=== PATIENT | female | born 1960 | race Caucasian/White ===

== ENCOUNTER 2021-04-21 09:37 | Emergency (ER) | payer OTHER ==
[2021-04-21] MEDS ORDERED: Sodium Chloride 0.9% 10 ML Syringe FLUSH PRN ×2 (10:08→10:36)
[2021-04-21] MEDS ORDERED: fentaNYL 100 MCG/2 ML SDV IVPUSH ONE (10:10)
[2021-04-21] MEDS ORDERED: Ondansetron 4 MG/2 ML SDV IVPUSH ONE (10:10)
--- NOTE | 2021-04-21 10:11 | EDM.PDOC ---
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 Abdomen Pain Score (Numeric/FACES): 8 - Related Data Allergies Allergy/AdvReac Type Severity Reaction Status Date / Time amoxicillin Allergy Rash Verified 08/17/15 12:48 Home Meds: Home Meds Multivitamin [Multi-Vitamin Daily] 1 tab PO DAILY 08/17/15 [History] PARoxetine HCl [Paxil] 40 mg PO PCDINNER 08/17/15 [History] Docusate Sodium [Colace] 100 mg PO BID PRN 04/21/21 [History] SUMAtriptan [Imitrex] 50 mg PO ASDIRECTED PRN 04/21/21 [History] Past Medical History [employer] History: Reports: Musculoskeletal History: Reports: Arthritis, Fracture Psychiatric History: Reports: Anxiety, Dementia Hematologic History: Reports: Blood Transfusion(s) - Past Surgical History HEENT Surgical History: Reports: Tonsillectomy GI Surgical History: Reports: Appendectomy, Small Bowel Female Surgical History: Reports: Section Musculoskeletal Surgical History: Reports: ORIF Social & Family History - Tobacco Use Tobacco Use Status *Q: Current Every Day Tobacco User Years of Tobacco use: 50 Packs/Tins Daily: 1 - Caffeine Use Caffeine Use: Reports: Coffee - Recreational Drug Use Recreational Drug Use: Yes Recreational Drug Type: Reports: Marijuana/Hashish Recreational Drug Use Frequency: Socially - Living Situation & Occupation Living situation: Reports: Alone ED ROS GENERAL - Review of Systems Review Of Systems: See Below Constitutional: Reports: Chills HEENT: Reports: No Symptoms Respiratory: Reports: No Symptoms Cardiovascular: Reports: No Symptoms GI/Abdominal: Reports: Abdominal Pain, Flatus, Nausea. Denies: Constipation, Diarrhea, Vomiting : Reports: No Symptoms ED EXAM, GI/ABD - Physical Exam Exam: See Below Exam Limited By: No Limitations General Appearance: Alert, Mild Distress Respiratory/Chest: No Respiratory Distress, Lungs Clear, Normal Breath Sounds, No Accessory Muscle Use, Chest Non-Tender Cardiovascular: Regular Rate, Rhythm, No Murmur GI/Abdominal Exam: Normal Bowel Sounds, Soft, No Organomegaly, No Distention, No Abnormal Bruit, Tender (Generalized) Course - Vital Signs Last Recorded V/S: Last Vital Signs Temp 97.6 F 04/21/21 09:58 Pulse 71 04/21/21 11:06 Resp 14 04/21/21 11:06 BP 122/59 L 04/21/21 11:06 Pulse Ox 97 04/21/21 11:06 - Orders/Labs/Meds Orders: Active Orders 24 hr Category Date Time Status Peripheral IV Care [RC] . DIRECTED Care 04/21/21 10:09 Active UA W/MICROSCOPIC [URIN] Urgent Lab 04/21/21 10:08 Ordered Lactated Ringers [Ringers, Lactated] 1,000 ml Med 04/21/21 10:15 Active IV ASDIRECTED Sodium Chloride 0.9% [Saline Flush] Med 04/21/21 10:08 Active 10 ml FLUSH ASDIRECTED PRN Sodium Chloride 0.9% [Saline Flush] Med 04/21/21 10:36 Active 10 ml FLUSH ONETIME PRN Peripheral IV Insertion Adult [OM.PC] Urgent Oth 04/21/21 10:08 Ordered Medication Orders Lactated Ringer's (Ringers, Lactated) 1,000 mls @ 999 mls/hr IV ASDIRECTED YASIR Last Admin: 04/21/21 10:30 Dose: 999 mls/hr Documented by: WALLYKCAL Sodium Chloride (Sodium Chloride 0.9% 10 Ml Syringe) 10 ml FLUSH ASDIRECTED PRN PRN Reason: Keep Vein Open Last Admin: 04/21/21 10:30 Dose: 10 ml Documented by: WALLYKCAL Sodium Chloride (Sodium Chloride 0.9% 10 Ml Syringe) 10 ml FLUSH ONETIME PRN PRN Reason: PER RADIOLOGY PROTOCOL Last Admin: 04/21/21 10:54 Dose: 10 ml Documented by: CORIE Labs: Laboratory Tests 04/21/21 04/21/21 04/21/21 Range/Units 10:21 10:21 10:21 WBC 10.9 (4.5-11.0) K/uL RBC 4.43 (3.30-5.50) M/uL Hgb 13.3 D (12.0-15.0) g/dL Hct 39.7 (36.0-48.0) % MCV 90 (80-98) fL MCH 30 (27-31) pg MCHC 34 (32-36) % Plt Count 281 (150-400) K/uL Neut % (Auto) 84.9 H (36-66) % Lymph % (Auto) 9.0 L (24-44) % Granite % (Auto) 5.3 (2-6) % Eos % (Auto) 0.5 L (2-4) % Baso % (Auto) 0.3 (0-1) % Sodium 143 (140-148) mmol/L Potassium 4.0 (3.6-5.2) mmol/L Chloride 103 (100-108) mmol/L Carbon Dioxide 24 (21-32) mmol/L Anion Gap 15.9 H (5.0-14.0) mmol/L BUN 10 (7-18) mg/dL Creatinine 0.7 (0.6-1.0) mg/dL Est Cr Clr Drug Dosing 51.16 mL/min Estimated GFR (MDRD) > 60 (>60) Glucose 125 H (74-106) mg/dL Lactic Acid 1.8 (0.4-2.0) mmol/L Calcium 9.5 (8.5-10.1) mg/dL Total Bilirubin 0.4 (0.2-1.0) mg/dL AST 29 (15-37) U/L ALT 22 (12-78) U/L Alkaline Phosphatase 59 (46-116) U/L Total Protein 7.5 (6.4-8.2) g/dL Albumin 4.2 (3.4-5.0) g/dL Globulin 3.3 (2.3-3.5) g/dL Albumin/Globulin Ratio 1.3 (1.2-2.2) Lipase 135 (73-393) U/L Meds: Medications Generic Name Dose Route Start Last Admin Trade Name Freq PRN Reason Stop Dose Admin Lactated Ringer's 1,000 mls @ 999 mls/hr 04/21/21 10:15 04/21/21 10:30 Ringers, Lactated IV 999 mls/hr ASDIRECTED YASIR Administration Sodium Chloride 10 ml 04/21/21 10:08 04/21/21 10:30 Sodium Chloride 0.9% 10 Ml Syringe FLUSH 10 ml ASDIRECTED PRN Administration Keep Vein Open Sodium Chloride 10 ml 04/21/21 10:36 04/21/21 10:54 Sodium Chloride 0.9% 10 Ml Syringe FLUSH 10 ml ONETIME PRN Administration PER RADIOLOGY PROTOCOL Discontinued Medications Generic Name Dose Route Start Last Admin Trade Name Alonso PRN Reason Stop Dose Admin Fentanyl 50 mcg 04/21/21 10:10 04/21/21 10:22 Fentanyl 100 Mcg/2 Ml Sdv IVPUSH 04/21/21 10:11 50 mcg ONETIME ONE Administration Sodium Chloride 70 mls @ 3 mls/sec 04/21/21 10:36 04/21/21 10:54 Normal Saline IV 04/21/21 10:37 3 mls/sec ONETIME ONE Administration Iopamidol 60 ml 04/21/21 10:36 04/21/21 10:54 Iopamidol 612 Mg/Ml 100 Ml Bottle IV 60 ml . DIRECTED PRN Administration RADIOLOGY EXAM Ondansetron HCl 4 mg 04/21/21 10:10 04/21/21 10:28 Ondansetron 4 Mg/2 Ml Sdv IVPUSH 04/21/21 10:11 4 mg ONETIME ONE Administration Departure - Departure Time of Disposition: 11:48 Disposition: Home, Self-Care 01 Condition: Fair Clinical Impression: Abdominal pain Qualifiers: Abdominal location: epigastric Qualified Code(s): R10.13 - Epigastric pain - Discharge Information Instructions: Abdominal Pain, Adult, [id number] Referrals: Ruby Fung CNM [Primary Care Provider] - Forms: ED Department Discharge Additional Instructions: Use Zofran as needed for nausea and vomiting symptoms, use hydrocodone as needed for severe abdominal pain, try the Nexium this is 1 tablet once a day would recommend starting at 20 mg this is [id number] medication. Please follow- up with your primary care in the next 3 to 5 days for reevaluation, call return to the emergency department worsening of symptoms, Sepsis Event Note (ED) - Evaluation Sepsis Screening Result: No Definite Risk - Focused Exam Vital Signs: Vital Signs Temp Pulse Resp BP Pulse Ox 04/21/21 11:06 71 14 122/59 L 97 05/21/21 09:58 97.6 F 63 24 H 160/83 H 98 - My Orders Last 24 Hours: My Active Orders 04/21/21 10:08 UA W/MICROSCOPIC [URIN] Urgent Sodium Chloride 0.9% [Saline Flush] 10 ml FLUSH ASDIRECTED PRN Peripheral IV Insertion Adult [OM.PC] Urgent 04/21/21 10:09 Peripheral IV Care [RC] . DIRECTED 04/21/21 10:15 Lactated Ringers [Ringers, Lactated] 1,000 ml IV ASDIRECTED 04/21/21 10:36 Sodium Chloride 0.9% [Saline Flush] 10 ml FLUSH ONETIME PRN - Assessment/Plan Last 24 Hours: My Active Orders 04/21/21 10:08 UA W/MICROSCOPIC [URIN] Urgent Sodium Chloride 0.9% [Saline Flush] 10 ml FLUSH ASDIRECTED PRN Peripheral IV Insertion Adult [OM.PC] Urgent 04/21/21 10:09 Peripheral IV Care [RC] . DIRECTED 04/21/21 10:15 Lactated Ringers [Ringers, Lactated] 1,000 ml IV ASDIRECTED 04/21/21 10:36 Sodium Chloride 0.9% [Saline Flush] 10 ml FLUSH ONETIME PRN Plan: Assessment Acuity = acute Site and laterality = abdominal pain Etiology = unknown Manifestations = none Location of injury = Home Lab values = CBC CMP lactic acid lipase all within normal limits CT scan shows no acute process however there is some thickening in the antrum of the gastric area consistent with peptic ulcer disease Plan I did review lab work CT scan results with her she is going to try some Nexium for couple weeks. I did write a prescription for hydrocodone 5/325 1 tab p.o. 3 times daily as needed total #6 and Zofran ODT 4 mg 1 tab p.o. 3 times daily as needed total #5 she will follow-up with her primary care in the next 3 to 5 days for reevaluation This note was dictated using [employer] recognition software please call with any questions on syntax or grammar.
[2021-04-21] MEDS ORDERED: Lactated Ringers 1,000 ML IV SCH (10:15)
[2021-04-21] MEDS ORDERED: Iopamidol 612 MG/ML 100 ML Bottle IV PRN (10:36)
[2021-04-21 11:06] VITALS: BP 122/59; PULSE 71
--- NOTE | 2021-04-21 11:28 | CRLCT ---
Indication: Generalized abdominal pain history of bowel obstructions Technique: Volumetric multidetector CT images of the abdomen and pelvis were obtained after the administration of intravenous contrast. 60 cc low osmolar intravenous contrast Comparison: None available. Findings: The lung bases are clear. The liver is normal in attenuation without intrahepatic biliary ductal dilatation. The portal vein is patent. The gallbladder is unremarkable without evidence of radiopaque calculus. There is no significant common biliary ductal dilatation or abrupt cut off. The spleen is normal in enhancement and size. There is minimal thickening of the gastric antrum which may represent peptic ulcer disease changes versus nondistention. The pancreas is normal in enhancement without significant atrophy. The adrenal glands are unremarkable. The kidneys demonstrate simple cystic changes without evidence of obstructive uropathy. Postoperative change of the colon status post colectomy and primary reanastomosis is appreciated. There otherwise decompressed appearing small bowel loops without evidence of significant small bowel dilatation. The appendix is not well visualized due to patient body habitus. There is no significant mesenteric, retroperitoneal, or pelvic sidewall lymph nodes. The aorta is nonaneurysmal. There is no significant atherosclerotic disease appreciated. The solid pelvic viscera are grossly unremarkable. There is no free fluid or free air. The anterior abdominal wall is intact without significant hernias. The lumbar vertebral body heights are grossly maintained with mild anterolisthesis of L4 on L5. There is moderate facet arthrosis. Impression: Questionable mild thickening of the gastric antrum which can be seen in the setting of peptic ulcer disease. Postoperative change of the colon status post colectomy and primary reanastomosis. No evidence of bowel obstruction. Please note that all CT scans at this facility use dose modulation, iterative reconstruction, and/or weight-based dosing when appropriate to reduce radiation dose to as low as reasonably achievable. Dictated by Zachary Waldrop MD @ 04/21/2021 11:25:[address] Zachary Waldrop @ Apr 21 2021 11:25AM
== END 2021-04-21 12:00 | disposition home or self-care (01) ==
LOC: JP.ED 09:37
DX: R10.13 Epigastric pain (principal); Z88.0 Allergy status to penicillin; Z72.0 Tobacco use
CPT/HCPCS: 36415; 74177; 80053; 83605; 83690; 85025; 96374; 96375; 99284; J2405; J3010; J7120; Q9967

== ENCOUNTER 2021-05-16 06:59 | Day surgery (SDC) | payer OTHER ==
[2021-05-16] MEDS ORDERED: Propofol 200 MG/20 ML SDV ONE (07:30)
[2021-05-16] MEDS ORDERED: Midazolam 1 MG/ML 2 ML SDV ONE (07:30)
[2021-05-16] MEDS ORDERED: fentaNYL 100 MCG/2 ML SDV ONE (07:30)
[2021-05-16] MEDS ORDERED: Dextrose 5%-Lactated Ringers 1,000 ML IV SCH (07:45)
[2021-05-16 10:38] VITALS: BP 103/45; PULSE 66
--- NOTE | 2021-05-24 12:50 | OR ---
DATE OF PROCEDURE: 05/16/2021 SURGEON: Yared Miles MD PREOPERATIVE DIAGNOSIS: Ongoing weight loss and upper abdominal discomfort with CAT scan suggestive of antral inflammation. POSTOPERATIVE DIAGNOSIS: Normal upper endoscopic examination. OPERATIVE PROCEDURE: Upper gastrointestinal endoscopy with antral biopsies for CLOtest. ANESTHESIA: IV sedation. INDICATION FOR PROCEDURE: This is a 60-year-old female presenting with some progressive ongoing weight loss. 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 Recent CT scan was suggestive of some antral inflammation consistent with either possible area of gastritis or ulcer disease. Plan is to proceed with upper GI endoscopy with biopsies as indicated. Potential risks including bleeding and perforation were discussed, and the patient wishes to proceed. DETAILS OF PROCEDURE: The patient was taken to the operating room, placed in a left lateral decubitus position. IV sedation was administered, after which the upper GI endoscope was passed orally through the length of the esophagus, into the stomach with retroflexion view of the fundus, thereafter through the pyloric channel into the junction of the 3rd and 4th portions of the duodenum. Overall the examination was entirely normal grossly. The esophagus, EG junction, stomach, pyloric channel, and visualized portions of the duodenum were all unremarkable. No significant inflammation. Biopsies had been obtained from the antrum and sent for CLOtest for H pylori. Minimal bleeding from the biopsy sites was seen and the procedure then concluded. The patient will be following up with Ruby Fung CNM in 7 to 10 days. With continued weight loss, we will set up a dietary evaluation and counseling at that appointment as well, and if the patient continues to lose weight, one would consider stepwise increasing the treatment to include something like Marinol or Megace to increase the patient's level of appetite, and eventually if this fails, percutaneous gastrostomy tube might be considered for some nighttime tube feedings. Yared Miles MD /[id number]
== END 2021-05-16 10:51 | disposition home or self-care (01) ==
LOC: JP.SDS 06:59
PROVIDERS: ATTEND Surgery
DX: K29.70 Gastritis, unspecified, without bleeding (principal); K25.9 Gastric ulcer, unspecified as acute or chronic, without hemorrhage or perforation; R63.4 Abnormal weight loss; F17.200 Nicotine dependence, unspecified, uncomplicated; Z88.1 Allergy status to other antibiotic agents
CPT/HCPCS: 43239; 87081; J2250; J2704; J3010; J7121

== ENCOUNTER 2022-03-23 07:37 | Emergency (ER) | payer OTHER ==
[2022-03-23 07:52] VITALS: BP 117/68; PULSE 90
[2022-03-23] MEDS: Alum Hydrox/Mag Hydrox/Simeth 15 ML, Lidocaine 2% 15 ML PO ONE ×2 (08:12)
== END 2022-03-23 09:48 | disposition home or self-care (01) ==
LOC: JP.ED 07:37
DX: R10.13 Epigastric pain (principal); F41.9 Anxiety disorder, unspecified; Z88.0 Allergy status to penicillin; Z72.0 Tobacco use; Z79.899 Other long term (current) drug therapy
CPT/HCPCS: 36415; 80053; 83690; 85025; 99282; 99284; A9270-GY

== ENCOUNTER 2022-10-06 13:18 | Emergency (ER) | payer OTHER ==
[2022-10-06] MEDS ORDERED: Alum Hydrox/Mag Hydrox/Simeth 15 ML, Lidocaine 2% 15 ML PO ONE ×2 (14:11)
[2022-10-06] MEDS ORDERED: hydrOXYzine HCL 100 MG/2 ML SDV IM ONE (14:38)
[2022-10-06] MEDS ORDERED: Sodium Chloride 0.9% 10 ML Syringe FLUSH PRN (14:48)
[2022-10-06] MEDS ORDERED: Sodium Chloride 0.9% 1,000 ML IV SCH (15:00)
[2022-10-06 15:03] VITALS: BP 147/56; PULSE 80
[2022-10-06] MEDS ORDERED: Iopamidol 612 MG/ML 100 ML Bottle IV ONE (15:03)
[2022-10-06] MEDS ORDERED: Sodium Chloride 0.9% 50 ML IV ONE (15:03)
[2022-10-06 15:19] LABS: ESTIMATED GFR 97 mL/min (>60)
== END 2022-10-06 16:55 | disposition home or self-care (01) ==
LOC: JP.ED 13:18
DX: N39.0 Urinary tract infection, site not specified (principal); E87.1 Hypo-osmolality and hyponatremia; M19.90 Unspecified osteoarthritis, unspecified site; Z72.0 Tobacco use; Z88.0 Allergy status to penicillin; Z79.899 Other long term (current) drug therapy
CPT/HCPCS: 36415; 74019; 74177; 80053; 81001; 85025; 87086; 87088; 87186; 96372; 99284; A9270; J3410; J3490; J7030; Q9967

== ENCOUNTER 2025-07-15 10:39 | Emergency (ER) | payer MEDICAID, MEDICARE ==
[2025-07-15] MEDS: Sodium Chloride 0.9% 10 ML Syringe FLUSH PRN (11:51)
[2025-07-15 12:09] LABS: BASOPHILS ABSOLUTE AUTO 0.03 K/uL (0.00-0.10); BASOPHILS PERCENT AUTO 0.3 % (0.1-1.3); EOSINOPHILS PERCENT AUTO 0.1 % (0.0-5.4); IMMATURE GRAN ABSOLUTE AUTO 0.04 K/uL (0.00-0.23); IMMATURE GRAN PERCENT AUTO 0.4 % (0.0-0.7); LYMPHOCYTES ABSOLUTE AUTO 0.88 K/uL (0.8-3.3); LYMPHOCYTES PERCENT AUTO 9.1 % (11.4-47.7); MONOCYTES ABSOLUTE AUTO 0.57 K/uL (0.20-0.90); MONOCYTES PERCENT AUTO 5.9 % (3.3-12.6); NEUTROPHILS ABSOLUTE AUTO 8.12 K/uL (1.0-7.6); NEUTROPHILS PERCENT AUTO 84.2 % (40.0-78.1); PLATELET COUNT,PLT 250 K/uL (130-375); RED BLOOD CELL COUNT 4.12 M/uL (3.77-5.24); WHITE BLOOD CELL COUNT,WBC 9.7 K/uL (3.2-11.0)
[2025-07-15 12:11] LABS: EOSINOPHILS ABSOLUTE AUTO 0.01 K/uL (0.00-0.40)
[2025-07-15 12:25] LABS: LACTIC ACID 1.5 mmol/L (0.4-2.0)
[2025-07-15 12:32] LABS: A/G RATIO 1.3 (1.2-2.2); ALANINE AMINOTRANSFERASE,ALT 20 U/L (12-78); ASPARTATE AMNIOTRANSFERASE,AST 33 U/L (15-37); BILIRUBIN TOTAL 0.4 mg/dL (0.2-1.0); BLOOD UREA NITROGEN,BUN 14 mg/dL (7-18); CARBON DIOXIDE,CO2 26 mmol/L (21-32); CHLORIDE,CL 93 mmol/L (100-108); CREATININE 0.6 mg/dL (0.6-1.0); EST CRCL DRUG DOSING (CG) 54.16 mL/min; ESTIMATED GFR 100 mL/min (>60); GLUCOSE RANDOM 112 mg/dL (74-106); POTASSIUM,K 3.8 mmol/L (3.6-5.2); PROTEIN TOTAL,TP 7.6 g/dL (6.4-8.2); SODIUM,NA 130 mmol/L (140-148)
[2025-07-15 13:11] VITALS: BP 143/90; PULSE 69
== END 2025-07-15 13:41 | disposition home or self-care (01) ==
LOC: JP.ED 10:39
DX: R11.2 Nausea with vomiting, unspecified (principal); E87.1 Hypo-osmolality and hyponatremia; F17.200 Nicotine dependence, unspecified, uncomplicated; Z88.1 Allergy status to other antibiotic agents; Z79.899 Other long term (current) drug therapy; Z90.49 Acquired absence of other specified parts of digestive tract
CPT/HCPCS: 36415; 80053; 83605; 85025; 96361; 96374; 96375; 99284; J1790; J2765; J7030